=== PATIENT | male | born 1985 | race Caucasian/White ===

== ENCOUNTER 2016-10-17 18:05 | Emergency (ER) | payer SELFPAY ==
[2016-10-17] MEDS ORDERED: predniSONE 20 MG TAB ONE (18:27)
[2016-10-17] MEDS ORDERED: Ketorolac Tromethamine 60 MG/2 ML VIAL ONE (18:27)
== END 2016-10-17 19:00 | disposition home or self-care (01) ==
LOC: BURERS 18:05
DX: M54.5 Low back pain (principal); F17.210 Nicotine dependence, cigarettes, uncomplicated
CPT/HCPCS: 96372; J1885; J7506

== ENCOUNTER 2016-10-28 15:14 | Emergency (ER) | payer SELFPAY ==
[2016-10-28] MEDS ORDERED: Ketorolac Tromethamine 60 MG/2 ML VIAL ONE (15:39)
[2016-10-28] MEDS ORDERED: Diazepam 5 MG TAB ONE (15:39)
== END 2016-10-28 16:02 | disposition home or self-care (01) ==
LOC: BURERS 15:14
DX: M54.5 Low back pain (principal); F17.210 Nicotine dependence, cigarettes, uncomplicated
CPT/HCPCS: 96372; J1885

== ENCOUNTER 2018-06-25 11:06 | Emergency (ER) | payer SELFPAY ==
[2018-06-25] MEDS ORDERED: methylPREDNISolone Sod Succ/PF 125 MG/2 ML VIAL ONE (11:26)
== END 2018-06-25 11:35 | disposition home or self-care (01) ==
LOC: BURERS 11:06
DX: S39.012A Strain of muscle, fascia and tendon of lower back, initial encounter (principal); F17.210 Nicotine dependence, cigarettes, uncomplicated; Z79.891 Long term (current) use of opiate analgesic; X50.1XXA Overexertion from prolonged static or awkward postures, initial encounter
CPT/HCPCS: 96372; J2930

== ENCOUNTER 2020-05-05 10:03 | Emergency (ER) | payer BC ==
[2020-05-05] MEDS ORDERED: predniSONE 20 MG TAB ONE (10:53)
[2020-05-05] MEDS ORDERED: Ketorolac Tromethamine 30 MG/ML VIAL ONE (10:53)
[2020-05-05] MEDS ORDERED: Orphenadrine Citrate 60 MG/2 ML VIAL ONE (10:53)
[2020-05-05 11:03] LABS: Bilirubin Negative (Negative); Blood, Urine Negative (Negative); Clarity Clear (Clear); Glucose, Urine (Dipstick) Negative (Negative); Ketone, Urine Negative (Negative); Leukocyte Negative (Negative); Nitrite Negative (Negative); Protein, Urine (Dipstick) Negative (Neg-Trace); Urobilinogen 0.2 mg/dL (Less than 2); pH, Urine 7.5 (5.0-9.0)
== END 2020-05-05 11:30 | disposition home or self-care (01) ==
LOC: BURERS 10:03
DX: M54.5 Low back pain (principal); G89.29 Other chronic pain; F17.210 Nicotine dependence, cigarettes, uncomplicated
CPT/HCPCS: 81003; 96372; 99283; J1885; J2360; J7512

== ENCOUNTER 2020-05-14 08:21 | Outpatient (CLI) | payer BC ==
--- NOTE | 2020-05-14 12:18 | RAD ---
LUMBAR SPINE 3 VIEWS: DATE: 05/14/2020. COMPARISON: Comparison is made with a 06/02/2014 study. FINDINGS: Any changes in the interval are quite minimal. There are large bridging osteophytes present anterior ly and laterally at L1-L2 along with sclerotic end plate changes in the adjacent vertebrae. There is slight narrowing of this disk space. Other than the osteophytes becoming a little more prominent, t he findings are very similar to before. The remainder of the lumbar spine showed no acute changes. No fracture or bony lesion was seen. The remaining disk spaces are unchanged from before. The SI aubrey ints are symmetrical. IMPRESSION: Prominent osteophytic changes at L1-L2 as previously. Overall, changes over time are very minimal. POS: HOME
== END 2020-05-14 08:22 | disposition home or self-care (01) ==
LOC: BURRAD 08:21
PROVIDERS: ATTEND Family Medicine
DX: M54.5 Low back pain (principal)
CPT/HCPCS: 72100

== ENCOUNTER 2021-05-04 13:57 | Emergency (ER) | payer BC, SELFPAY ==
[2021-05-04] MEDS ORDERED: methylPREDNISolone Sod Succ/PF 125 MG/2 ML VIAL ONE (14:14)
== END 2021-05-04 14:27 | disposition home or self-care (01) ==
LOC: BURERS 13:57
DX: M54.10 Radiculopathy, site unspecified (principal); M54.50 Low back pain, unspecified; G89.29 Other chronic pain; F17.210 Nicotine dependence, cigarettes, uncomplicated
CPT/HCPCS: 96372; 99283; J2930